=== PATIENT | female | born 1965 | race Caucasian/White ===

== ENCOUNTER → 2020-10-04 | Outpatient (CLI) | payer BC ==
--- NOTE | 2020-10-04 12:30 | RAD ---
PROCEDURE: XR PELVIS 1-2V STUDY DATE: 10/04/2020 CLINICAL INDICATION / HISTORY: Reason: PELVIC PAIN, SACROILITIS / Spl. Instructions: / History: . TECHNIQUE: Single AP view of the pelvis was obtained. COMPARISON: None FINDINGS: The osseous structures are normally mineralized. There is normal bony alignment present wit h the femoral heads well-seated within the acetabuli. There is mild bilateral medial hip joint space narrowing.. There is no evidence of acute fracture or dislocation identified. The overlying soft tis sues are grossly unremarkable. 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 No fracture, malalignment or evidence of bone erosion. No definite sclerosis at the sacroiliac joints to suggest sequelae of sacroiliitis. If clinically warranted, more detailed evaluation could be considered with MRI of the pelvis and sacrum . Electronically signed by: Loli Christy MD (10/04/2020 12:28 PM) [id number]
== END ==
LOC: DXRAD 11:21
PROVIDERS: ATTEND Specialist
DX: M16.0 Bilateral primary osteoarthritis of hip (principal); M46.1 Sacroiliitis, not elsewhere classified
CPT/HCPCS: 72170

== ENCOUNTER → 2020-10-26 | Outpatient (CLI) | payer BC ==
--- NOTE | 2020-10-26 11:12 | RAD ---
EXAM: Chest, 2 views. HISTORY: Cough. COMPARISON: None. FINDINGS: 2 views of the chest are obtained. There is suspected right middle and lower lobe infiltrat e or scarring. There is no consolidation, pleural fusion or pneumothorax. The heart is normal in size . There are implanted breast prostheses. IMPRESSION: Right middle lobe and left lower lobe interstitial infiltrate or scarring. Electronically signed by: Radha Matson MD (10/26/2020 11:09 AM) [id number]
[2020-10-26 11:35] LABS: BASO % 0 % (0-3); EOS # 0.4 x10^3/uL (0.0-0.7); EOS % 7 % (0-3); HEMATOCRIT 39.6 % (36.0-47.0); HEMOGLOBIN 13.1 g/dL (12.0-15.5); LYMPH # 1.6 x10^3/uL (1.0-4.8); LYMPH % 27 % (24-48); MEAN CORPUSCULAR HEMOGLOBIN 33 pg (25-35); MEAN CORPUSCULAR HGB CONC 33 g/dL (31-37); MEAN CORPUSCULAR VOLUME 99 fL (79-100); MONO # 0.4 x10^3/uL (0.0-1.1); MONO % 7 % (0-9); NEUT # 3.6 x10^3uL (1.8-7.7); NEUT % 59 % (31-73); PLATELET COUNT 282 x10^3/uL (140-400); RED BLOOD COUNT 4.01 x10^6/uL (3.50-5.40); RED CELL DISTRIBUTION WIDTH 13.3 % (11.5-14.5)
[2020-10-26 13:41] LABS: CREATININE 0.8 mg/dL (0.6-1.0); GFR 74.2; POTASSIUM 4.1 mmol/L (3.5-5.1)
== END ==
LOC: RAD 10:34
PROVIDERS: ATTEND Specialist
DX: R05 Cough (principal); R06.02 Shortness of breath
CPT/HCPCS: 36415; 71046; 80048; 85025